=== PATIENT | female | born 1995 | race American Indian/Alaskan Native ===

== ENCOUNTER 2017-06-17 09:01 | Inpatient (IN) | payer OTHER, MEDICAID ==
[2017-06-17] MEDS ORDERED: BRETHINE IVP PRN (11:12)
[2017-06-17] MEDS ORDERED: ePHEDrine SULFATE IV PRN ×2 (11:12→18:00)
[2017-06-17] MEDS ORDERED: SUBLIMAZE IV PRN (11:12)
[2017-06-17] MEDS ORDERED: XYLOCAINE 2% INFILTRATI ONE (11:12)
[2017-06-17] MEDS ORDERED: BRETHINE SUB-Q PRN (11:12)
[2017-06-17] MEDS ORDERED: POLYCILLIN/NS 2 GM/100 ML 2 GM/100 ML BAG IV ONE (12:00)
[2017-06-17] MEDS ORDERED: PITOCin/NS 20 UNIT/1000ML DRIP 20 UNITS/1,000 ML BAG IV SCH ×2 (12:00→23:05)
[2017-06-17] MEDS ORDERED: LACTATED RINGERS 1,000 ML IV SCH (12:00)
[2017-06-17 12:28] LABS: Hematocrit 36.6 % (30.3-42.9); Mean Corpuscular HGB Conc 33 % (30-34); Mean Corpuscular Hemoglobin 31 pg (28-32); Mean Corpuscular Volume 93 fl (79-97); Platelet Count 214 K/mm3 (140-440); Red Blood Count 3.92 M/mm3 (3.65-5.03); Red Cell Distribution Width 14.1 % (13.2-15.2)
--- NOTE | 2017-06-17 13:27 | History and Physical Report ---
History of Present Illness Date of examination: 06/17/17 Date of admission: 06/17/17 09:02 History of present illness: 21 yo LMP EDC 06/23/17 at 39.1 weeks gestation, presented to triage at 6cm. Voiced contractions since office visit yesterday. Denies vaginal bleeding or LOF > Early entry into care @ 11 weeks. Experienced 1st trimester vaginal bleeding with resolution. Aslo positive for GC and CT with treatment and negative LACEY in third trimester. She is GBS positive. Past History Past Medical History: no pertinent history Past Surgical History: no surgical history Family/Genetic History: none Social history: single - Obstetrical History Expected Date of Delivery: 06/23/17 Actual Gestation: 39 Week(s) 1 Day(s) : 1 Medications and Allergies Allergies Allergy/AdvReac Type Severity Reaction Status Date / Time No Known Allergies Allergy Unverified 06/17/17 10:25 Active Meds: Active Medications Ephedrine Sulfate (Ephedrine Sulfate) 10 mg IV Q2M PRN PRN Reason: Hypotension Stop: 06/17/17 15:00 Fentanyl (Sublimaze) 100 mcg IV Q2H PRN PRN Reason: Labor Pain Ampicillin Sodium (Polycillin/Ns 1 Gm/50 Ml) 1 gm in 50 mls @ 100 mls/hr IV Q4HR HEATHER PRN Reason: Protocol Lactated Ringer's (Lactated Ringers) 1,000 mls @ 125 mls/hr IV DIRECT [facility] Last Admin: 06/17/17 11:47 Dose: 125 mls/hr Oxytocin/Sodium Chloride (Pitocin/Ns 20 Unit/1000ml Drip) 20 units in 1,000 mls @ 125 mls/hr IV DIRECT HEATHER Mineral Oil (Mineral Oil) 30 ml PO QHS PRN PRN Reason: Constipation Terbutaline Sulfate (Brethine) 0.25 mg SUB-Q ONCE PRN PRN Reason: Hyperstimulation/Hypertonicity Stop: 06/17/17 15:00 Terbutaline Sulfate (Brethine) 0.25 mg IVP ONCE PRN PRN Reason: Hyperstimulation/Hypertonicity Stop: 06/17/17 15:00 Review of Systems All systems: negative Genitourinary: normal appearance, contractions, no vaginal bleeding, no vaginal discharge, no genital sores - Vital Signs Vital signs: Vital Signs Temp Resp 98.8 F 16 06/17/17 09:45 06/17/17 09:45 Temp Pulse Resp BP Pulse Ox 98.1 F 96 H 18 140/55 98 06/17/17 12:08 06/17/17 13:26 06/17/17 12:08 06/17/17 12:25 06/17/17 13:26 - Physical Exam Lungs: Positive: Normal air movement Abdomen: Positive: normal appearance Vulva: both: normal Vagina: Positive: normal moisture - Obstetrical FHR: category 1 (prior to AROM), category 2 (varible decels after AROM-clear fluid) Uterine Contraction Monitor Mode: External Cervical Dilatation: 8 Cervical Effacement Percentage: 80 station: -1 Uterine Contraction Frequency (min): toco adjusted Uterine Contraction Pattern: Irregular Uterine Tone Measurement Phase: Resting Uterine Contraction Intensity: Strong/Firm Results Result Diagrams: 06/17/17 11:43 All other labs normal. Assessment and Plan A: IUP at 39.1 weeks gestation Transitional Labor +GBS P AROM-clear Expectant ita't
[2017-06-17] MEDS: POLYCILLIN/NS 1 GM/50 ML 1 GM/50 ML BAG IV SCH ×2 (15:09→20:29)
[2017-06-17] MEDS ORDERED: STADOL IV PRN (16:32)
[2017-06-17] MEDS ORDERED: PITOCin/NS 30 UNIT/500ML 30 UNITS/500 ML BAG IV SCH (17:00)
--- NOTE | 2017-06-17 17:40 | Event Note ---
Date: 06/17/17 Pt bolusing for epidural. FHTs Category II Tracing. Irregular contractions. Cervix: /-2. RN reports inadequate contractions previously. Begin pitocin augmentation. Pt bolusing for epidural.
[2017-06-17] MEDS ORDERED: NARCAN 2 MG/2 ML IV PRN (18:00)
[2017-06-17] MEDS ORDERED: fentaNYL-BUPIV 2 MCG/ML-0.125% 200 MCG/100 ML BAG EPIDURAL SCH (19:00)
--- NOTE | 2017-06-17 21:25 | Procedure Note ---
OB Delivery Note - Delivery Date of Delivery: 06/17/17 Surgeon: SANDOR FIGUEROA Estimated blood loss: 300cc - Vaginal Delivery presentation: vertex Delivery position: OA Intrapartum events: meconium, prolonged active phase, mult.variable deceleratio Delivery induction: none Delivery augmentation: rupture of membranes, pitocin Delivery monitor: external FHT, internal uterine Route of delivery: Delivery placenta: spontaneous Delivery cord: 3 umbilical vessels Episiotomy: none Delivery laceration: none Anesthesia: epidural Delivery comments: Pt progressed to complete/complete/+1 and pushed to deliver a viable female via under epidural anesthesia over intact perineum. Head delivered in MILAD position, quickly followed by shoulders and body. placed on maternal abdomen for bonding and bulb suctioned. Cord clamped and cut. Cord blood collected. handed to nurse in attendance. Placenta delivered spontaneously (3VC, intact). Vagina and perineum explored. No lacerations noted. EBL 300 mL. - Infant A at 1 minute: 8 at 5 minutes: 9 Infant Gender: Female (2987g (6lb 9oz) @ 21:11pm)
[2017-06-17] MEDS ORDERED: MINERAL OIL PO PRN (22:00)
[2017-06-17] MEDS ORDERED: ZOFRAN IV PRN (23:05)
[2017-06-17] MEDS ORDERED: DULCOLAX PR PRN (23:05)
[2017-06-17] MEDS ORDERED: PHENERGAN PO PRN (23:05)
[2017-06-17] MEDS ORDERED: MILK OF MAGNESIA PO PRN (23:05)
[2017-06-17] MEDS ORDERED: DERMOPLAST TP PRN (23:05)
[2017-06-17] MEDS ORDERED: LANSINOH TP PRN ×2 (23:05)
[2017-06-17] MEDS ORDERED: BENADRYL PO PRN (23:05)
[2017-06-17] MEDS ORDERED: PHENERGAN PR PRN (23:05)
[2017-06-17] MEDS ORDERED: NORCO 5/325 PO PRN (23:05)
[2017-06-17] MEDS ORDERED: SODIUM CHLORIDE FLUSH SYRINGE 10 ML IV PRN (23:05)
[2017-06-17] MEDS ORDERED: TUCKS PAD TP PRN (23:05)
[2017-06-17] MEDS ORDERED: TYLENOL PO PRN (23:05)
[2017-06-18] MEDS: MOTRIN PO SCH ×5 (00:58→23:32)
[2017-06-18] MEDS: FEOSOL PO SCH ×3 (00:58→23:32)
--- NOTE | 2017-06-18 08:40 | Progress Note ---
Assessment and Plan O: VSS AF PP H/H: PP pending A: Stable 12hr post P: Routine PP orders Subjective - Subjective Date of service: 06/18/17 Interval history: 21 yo LMP EDC 06/23/17 at 39.1 weeks gestation, presented to triage at 6cm. Voiced contractions since office visit yesterday. Denies vaginal bleeding or LOF > Early entry into care @ 11 weeks. Experienced 1st trimester vaginal bleeding with resolution. Aslo positive for GC and CT with treatment and negative LACEY in third trimester. She is GBS positive. Patient reports: appetite normal, voiding normally, pain well controlled, ambulating normally : doing well, nursing well Objective - Vital Signs Latest vital signs: Vital Signs Temp Pulse Resp BP BP Pulse Ox 06/18/17 05:57 18 06/18/17 04:30 98.6 F 69 16 114/74 06/18/17 01:58 18 06/18/17 01:30 98.6 F 69 16 101/76 06/18/17 00:58 18 06/17/17 22:45 97.7 F 06/17/17 22:35 69 144/66 06/17/17 22:20 68 132/63 06/17/17 22:05 80 131/60 06/17/17 21:51 93 H 127/72 06/17/17 21:35 91 H 117/63 06/17/17 21:27 90 116/62 06/17/17 21:16 121 H 100 06/17/17 21:11 148 H 92 06/17/17 21:06 135 H 100 06/17/17 21:05 112 H 99/58 06/17/17 21:01 123 H 99 06/17/17 21:00 106 H 92 06/17/17 20:56 89 99 06/17/17 20:51 84 98/54 100 06/17/17 20:46 92 H 100 06/17/17 20:41 86 93 06/17/17 20:37 97 H 95/52 06/17/17 20:36 78 100 06/17/17 20:31 98 H 100 06/17/17 20:26 73 100 06/17/17 20:21 73 100 06/17/17 20:20 107 H 118/81 06/17/17 20:16 103 H 100 06/17/17 20:11 73 100 06/17/17 20:06 90 100 06/17/17 20:05 104 H 115/74 06/17/17 20:01 85 100 06/17/17 19:56 66 100 06/17/17 19:51 65 99 06/17/17 19:50 63 114/57 06/17/17 19:46 69 100 06/17/17 19:45 76 80 L 06/17/17 19:40 69 100 06/17/17 19:35 73 128/73 99 06/17/17 19:30 97.2 F L 62 100 06/17/17 19:25 65 100 06/17/17 19:20 85 133/63 06/17/17 19:06 61 115/59 06/17/17 18:51 84 122/66 06/17/17 18:36 99 H 119/59 06/17/17 18:21 91 H 104/63 06/17/17 18:04 72 109/58 06/17/17 18:03 88 114/52 06/17/17 18:00 74 112/55 06/17/17 17:58 88 97/49 06/17/17 17:57 73 111/53 06/17/17 17:55 85 100/49 06/17/17 17:40 65 121/58 06/17/17 17:08 67 116/85 06/17/17 17:00 98.2 F 16 06/17/17 16:40 58 L 117/58 06/17/17 16:07 60 115/67 06/17/17 15:55 90 111/66 06/17/17 15:39 62 109/71 06/17/17 15:21 65 154/60 06/17/17 15:17 154/60 06/17/17 15:10 48 H 06/17/17 15:01 64 99 06/17/17 14:56 67 100 06/17/17 14:54 99 H 92 06/17/17 14:51 65 100 06/17/17 14:46 29 L 91 06/17/17 14:41 72 100 06/17/17 14:38 81 94 06/17/17 14:36 83 100 06/17/17 14:31 66 95 06/17/17 14:29 93 H 89 06/17/17 14:26 69 100 06/17/17 14:21 71 93 06/17/17 14:16 95 H 89 06/17/17 14:11 67 100 06/17/17 14:06 59 L 100 06/17/17 14:01 65 100 06/17/17 13:56 71 100 06/17/17 13:52 91 H 86 06/17/17 13:51 69 100 06/17/17 13:46 63 100 06/17/17 13:41 75 100 06/17/17 13:36 75 99 06/17/17 13:31 87 99 06/17/17 13:26 96 H 98 06/17/17 13:21 105 H 97 06/17/17 13:17 88 87 06/17/17 13:16 82 97 06/17/17 13:11 86 96 06/17/17 13:09 94 H 94 06/17/17 13:06 95 H 97 06/17/17 13:01 94 H 97 06/17/17 12:56 71 98 06/17/17 12:51 90 98 06/17/17 12:46 84 98 06/17/17 12:41 98 H 98 06/17/17 12:36 83 100 06/17/17 12:31 96 H 92 06/17/17 12:26 102 H 100 06/17/17 12:25 90 140/55 06/17/17 12:21 90 100 06/17/17 12:16 96 H 100 06/17/17 12:11 96 H 99 06/17/17 12:08 98.1 F 74 18 140/55 100 06/17/17 12:06 99 H 100 06/17/17 12:01 87 98 06/17/17 12:00 80 93 06/17/17 11:56 86 100 06/17/17 11:53 96 H 81 L 06/17/17 11:51 84 100 06/17/17 11:46 82 100 06/17/17 11:41 94 H 98 06/17/17 11:36 79 97 06/17/17 11:34 59 L 91 06/17/17 11:31 83 97 06/17/17 11:26 74 97 06/17/17 11:21 71 99 06/17/17 11:16 72 99 06/17/17 10:54 86 114/55 06/17/17 10:40 78 105/52 06/17/17 10:27 77 114/64 06/17/17 10:21 65 109/63 06/17/17 10:16 75 105/61 06/17/17 10:11 74 112/63 06/17/17 10:08 81 109/54 06/17/17 10:01 95 H 121/65 06/17/17 09:57 66 110/55 06/17/17 09:51 87 111/64 06/17/17 09:49 81 187/68 06/17/17 09:45 98.8 F 16 Intake and Output 06/17/17 06/18/17 06/18/17 22:59 06:59 14:59 Intake Total 85 500 Output Total 1400 Balance 85 -900 Intake: IV 85 PITOCin/NS 30 UNIT/500ML 35 30 units In 500 ml @ 4 mls/hr IV Q30MIN HEATHER Rx#: [id number] POLYCILLIN/NS 1 GM/50 ML 50 1 gm In 50 ml @ 100 mls/ hr IV Q4HR HEATHER Rx#: [id number] Oral 200 Intake, Free Water 300 Output: Urine 1400 Void 1400 Other: Total, Intake Amount 200 Total, Output Amount 800 # Voids Void 1 Estimated Blood Loss 300 - Exam Breasts: Present: deferred Lungs: Present: Normal air movement Abdomen: Present: normal appearance, soft. Absent: distention, tenderness Uterus: Present: normal, firm, fundal height below umbilicus. Absent: bogginess , tenderness Extremities: Present: normal
[2017-06-18 10:20] LABS: Hematocrit 31.3 % (30.3-42.9); Hemoglobin 10.4 gm/dl (10.1-14.3)
[2017-06-18] MEDS ORDERED: M-M-R II VACCINE SUB-Q ONE (21:30)
[2017-06-19] MEDS: MOTRIN PO SCH ×2 (05:30→12:45)
[2017-06-19] MEDS ORDERED: BOOSTRIX IM ONE (06:00)
--- NOTE | 2017-06-19 14:33 | Progress Note ---
Assessment and Plan A: PPD#2 s/p at term P: Discharge home with follow up in 4 weeks. Subjective - Subjective Date of service: 06/19/17 Principal diagnosis: s/p at term Interval history: No overnight events. Pt would like to go home. Patient reports: appetite normal, voiding normally, pain well controlled, ambulating normally, no dizzy ambulation Mercer: doing well Objective - Vital Signs Latest vital signs: Vital Signs Temp Pulse Resp BP 06/19/17 00:00 98.0 F 63 18 112/73 06/18/17 17:10 98.6 F 77 18 97/54 Intake and Output 06/18/17 06/19/17 06/19/17 22:59 06:59 14:59 Intake Total 240 Balance 240 Intake: Oral 240 Other: Total, Intake Amount 240 # Voids Void 1 - Exam Breasts: Present: deferred Cardiovascular: Present: Regular rate Lungs: Present: Clear to auscultation Abdomen: Present: soft Uterus: Present: fundal height below umbilicus Extremities: Present: normal
--- NOTE | 2017-06-19 14:35 | Discharge Summary ---
Providers - Providers Date of Admission: 06/17/17 09:02 Date of discharge: 06/19/17 Attending physician: RENA ANGEL 06/17/17 23:05 Consult to [employer] [CONS] Routine Reason For Exam: assistance with , SNS Primary care physician: RENA ANGEL Hospitalization Reason for admission: active labor Delivery: Procedure details: Please see delivery note. Episiotomy: none Laceration: none Other procedures: none complications: none Discharge diagnosis: IUP at term delivered baby: female Hospital course: Patient was admitted in active labor and went on to have a spontaneous vaginal delivery. Her course uncomplicated and she met discharge criteria on postoperative day #2. She'll follow up in the office with Dr. Rena Angel in 4 weeks. Condition at discharge: Stable Disposition: DC-01 TO HOME OR SELFCARE - Discharge Diagnoses (1) Term of female Status: Acute (2) Obesity (BMI 30.0-34.9) Status: Acute Plan - Discharge Medications Prescriptions: HYDROcodone/APAP 5-325 [[place] 5/325] 1 each PO Q6HR PRN #20 tablet PRN Reason: Pain Ibuprofen [Motrin] 800 mg PO Q8HR PRN #30 tablet PRN Reason: Pain - Provider Discharge Summary Activity: routine, no sex for 6 weeks, no heavy lifting 4 weeks, no strenuous exercise Diet: routine Instructions: routine Additional instructions: [] Smoking cessation referral if applicable(refer to patient education folder for contact #) [] Refer to [facility]'s [facility] Booklet Call your doctor immediately for: * Fever > 100.5 * Heavy vaginal bleeding ( >1 pad per hour) * Severe persistent headache * Shortness of breath * Reddened, hot, painful area to leg or breast * Drainage or odor from incision. * Keep incision clean and dry at all times and follow doctor's instructions regarding bathing/showering - Follow up plan Follow up: RENA ANGEL MD [Primary Care Provider] - 07/15/17 (please call for exam )
[2017-06-19 15:10] VITALS: BP 103/56
== END 2017-06-19 17:17 | disposition home or self-care (01) | DRG 775 ==
LOC: TRG 09:01 → LD 09:02 → TRG 09:03 → LD 09:03 → TRG 10:54 → OB 22:58
PROVIDERS: ADMIT Obstetrics & Gynecology; ATTEND Obstetrics & Gynecology
PROC: 10907ZC Drainage of Amniotic Fluid, Therapeutic from Products of Conception, Via Natural or Artificial Opening (ICD-10-PCS; principal; 2017-06-17)
PROC: 10E0XZZ Delivery of Products of Conception, External Approach (ICD-10-PCS; 2017-06-17)
PROC: 3E0R3BZ Introduction of Anesthetic Agent into Spinal Canal, Percutaneous Approach (ICD-10-PCS; 2017-06-17)
PROC: 00HU33Z Insertion of Infusion Device into Spinal Canal, Percutaneous Approach (ICD-10-PCS; 2017-06-17)
DX: O76 Abnormality in fetal heart rate and rhythm complicating labor and delivery (principal); O99.824 Streptococcus B carrier state complicating childbirth; O77.0 Labor and delivery complicated by meconium in amniotic fluid; O62.4 Hypertonic, incoordinate, and prolonged uterine contractions; O99.214 Obesity complicating childbirth; E66.9 Obesity, unspecified; Z68.30 Body mass index [BMI] 30.0-30.9, adult; Z3A.39 39 weeks gestation of pregnancy; Z37.0 Single live birth
CPT/HCPCS: 36415; 85014; 85018; 85027; 86850; 86900; 86901; 99211; G0463; J0290; J0595; J2590; J3010; J7120

== ENCOUNTER 2019-02-28 15:04 | Emergency (ER) | payer MEDICAID, OTHER ==
--- NOTE | 2019-02-28 15:26 | Emergency Department Report ---
Blank Doc - Documentation Documentation: 23-year-old female that presents with left pelvic pain with radiation to left back. Denies any vaginal bleeding. Stated is about 4 weeks . This initial assessment/diagnostic orders/clinical plan/treatment(s) is/are subject to change based on patient's health status, clinical progression and re- assessment by fellow clinical providers in the ED. Further treatment and workup at subsequent clinical providers discretion. Patient/guardians urged not to elope from the ED as their condition may be serious if not clinically assessed and managed. Initial orders include: 1- Patient sent to [facility] for further evaluation and treatment 2- labs 3- US OB
[2019-02-28 17:04] LABS: Basophils % (Auto) 0.4 % (0.0-1.8); Eosinophils # (Auto) 0.1 K/mm3 (0.0-0.4); Eosinophils % (Auto) 1.9 % (0.0-4.3); Hematocrit 37.6 % (30.3-42.9); Hemoglobin 12.4 gm/dl (10.1-14.3); Lymphocytes # (Auto) 1.7 K/mm3 (1.2-5.4); Lymphocytes % (Auto) 28.7 % (13.4-35.0); Mean Corpuscular HGB Conc 33 % (30-34); Mean Corpuscular Volume 95 fl (79-97); Monocytes # (Auto) 0.5 K/mm3 (0.0-0.8); Monocytes % (Auto) 8.5 % (0.0-7.3); Platelet Count 190 K/mm3 (140-440); Red Blood Count 3.96 M/mm3 (3.65-5.03); Red Cell Distribution Width 13.7 % (13.2-15.2)
--- NOTE | 2019-02-28 18:16 | Ultrasound Report ---
ULTRASOUND OBSTETRIC INDICATION / CLINICAL INFORMATION: pelvic pain. Vaginal bleeding. Clinical Gestational Age (GA): 4 weeks 0 days TECHNIQUE: Transabdominal and Transvaginal. COMPARISON: None available. FINDINGS: GESTATIONAL SAC: Well-defined oval shape and intrauterine in location. YOLK SAC: No significant abnormality. EMBRYO/FETUS: No significant abnormality. - [place]-Rump Length = 0.87 cm = 6 weeks, 6 day(s). - Heart Rate, beats per minute (if present) = 144 ADNEXA: Small 2.8 cm right ovarian cyst. FREE FLUID: None. ADDITIONAL FINDINGS: Small, crescentic hypoechoic area adjacent to the gestational sac measuring 0.5 x 0.2 x 0.6 cm likely representing small subchorionic bleed. IMPRESSION: 1. Single, living intrauterine with estimated sonographic age of 6 weeks, 6 day(s). 2. Small subchorionic bleed. Signer Name: James Sullivan MD Signed: 02/28/2019 6:12 PM Workstation Name: [id number]
--- NOTE | 2019-02-28 18:16 | Ultrasound Report ---
ULTRASOUND OBSTETRIC INDICATION / CLINICAL INFORMATION: pelvic pain. Vaginal bleeding. Clinical Gestational Age (GA): 4 weeks 0 days TECHNIQUE: Transabdominal and Transvaginal. COMPARISON: None available. FINDINGS: GESTATIONAL SAC: Well-defined oval shape and intrauterine in location. YOLK SAC: No significant abnormality. EMBRYO/FETUS: No significant abnormality. - [place]-Rump Length = 0.87 cm = 6 weeks, 6 day(s). - Heart Rate, beats per minute (if present) = 144 ADNEXA: Small 2.8 cm right ovarian cyst. FREE FLUID: None. ADDITIONAL FINDINGS: Small, crescentic hypoechoic area adjacent to the gestational sac measuring 0.5 x 0.2 x 0.6 cm likely representing small subchorionic bleed. IMPRESSION: 1. Single, living intrauterine with estimated sonographic age of 6 weeks, 6 day(s). 2. Small subchorionic bleed. Signer Name: James Sullivan MD Signed: 02/28/2019 6:12 PM Workstation Name: [id number]
[2019-02-28 18:19] LABS: Bacteria,Urine 2+ /HPF (Negative); Bilirubin,Urine NEG (Negative); Blood,Urine LG (Negative); Color,Urine Red (Yellow); Mucus,Urine FEW /HPF; Urobilinogen,Urine < 2.0 mg/dL (<2.0)
--- NOTE | 2019-02-28 19:53 | Emergency Department Report ---
ED HPI - General Chief complaint: Vaginal Bleeding Stated complaint: /BLEEDING Time Seen by Provider: 02/28/19 15:25 Source: patient Mode of arrival: Ambulatory Limitations: No Limitations - History of Present Illness Initial comments: Patient is a 23-year-old female presents emergency room with complaints of an episode of vaginal bleeding that occurred today. she denies any bleeding currently. She had some pelvic cramping has since resolved. states that she took a urine test and it was positive but she is not sure how far along she is she has not seen an [facility]. She denies any nausea, vomiting, fever, urinary symptoms, vaginal discharge. She denies any past medical history or allergies medications. /P:1/A:1 - Related Data Home Medications Medication Instructions Recorded Confirmed Last Taken Pnv 29-1 Tablet 1 tab PO DAILY 06/19/17 06/19/17 2 Days Ago ~06/17/17 Previous Rx's Medication Instructions Recorded Last Taken Type HYDROcodone/APAP 5-325 [[place] 1 each PO Q6HR PRN #20 tablet 06/18/17 Unknown Rx 5/325] Ibuprofen [Motrin] 800 mg PO Q8HR PRN #30 tablet 06/18/17 Unknown Rx cephALEXin [Keflex] 500 mg PO BID 7 Days #14 cap 02/28/19 Unknown Rx Allergies Allergy/AdvReac Type Severity Reaction Status Date / Time No Known Allergies Allergy Unverified 06/17/17 10:25 ED Review of Systems ROS: Stated complaint: /BLEEDING Other details as noted in HPI Comment: All other systems reviewed and negative ED Past Medical Hx - Past Medical History Previous Medical History?: No Hx Hypertension: No Hx Congestive Heart Failure: No Hx Diabetes: No Hx Deep Vein Thrombosis: No Hx Renal Disease: No Hx Sickle Cell Disease: No Hx Seizures: No Hx Asthma: No Hx COPD: No Hx HIV: No - Surgical History Past Surgical History?: No - Social History Smoking Status: Never Smoker Substance Use Type: Alcohol - Medications Home Medications: Home Medications Medication Instructions Recorded Confirmed Last Taken Type HYDROcodone/APAP 5-325 [[place] 1 each PO Q6HR PRN #20 tablet 06/18/17 Unknown Rx 5/325] Ibuprofen [Motrin] 800 mg PO Q8HR PRN #30 tablet 06/18/17 Unknown Rx Pnv 29-1 Tablet 1 tab PO DAILY 06/19/17 06/19/17 2 Days Ago History ~06/17/17 cephALEXin [Keflex] 500 mg PO BID 7 Days #14 cap 02/28/19 Unknown Rx ED Physical Exam - General Limitations: No Limitations General appearance: alert, in no apparent distress - Head Head exam: Present: atraumatic, normocephalic - Eye Eye exam: Present: normal appearance - ENT ENT exam: Present: mucous membranes moist - Respiratory Respiratory exam: Present: normal lung sounds bilaterally. Absent: respiratory distress, wheezes, rales, rhonchi, stridor, chest wall tenderness, accessory muscle use, decreased breath sounds, prolonged expiratory - Cardiovascular Cardiovascular Exam: Present: regular rate, normal rhythm, normal heart sounds. Absent: systolic murmur, diastolic murmur, rubs, gallop - GI/Abdominal GI/Abdominal exam: Present: soft, normal bowel sounds. Absent: distended, tenderness, guarding, rebound, rigid - Neurological Exam Neurological exam: Present: alert, oriented X3 - Psychiatric Psychiatric exam: Present: normal affect, normal mood - Skin Skin exam: Present: warm, dry, intact ED Course Vital Signs 02/28/19 02/28/19 15:08 20:06 Temperature 98.2 F Pulse Rate 87 80 Respiratory 17 Rate Blood Pressure 113/64 Blood Pressure 120/78 [Right] O2 Sat by Pulse 100 Oximetry ED Medical Decision Making - Lab Data Result diagrams: 02/28/19 15:59 Lab Results 02/28/19 02/28/19 02/28/19 Range/Units 15:59 15:59 15:59 WBC 6.1 (4.5-11.0) K/mm3 RBC 3.96 (3.65-5.03) M/mm3 Hgb 12.4 (10.1-14.3) gm/dl Hct 37.6 (30.3-42.9) % MCV 95 (79-97) fl MCH 31 (28-32) pg MCHC 33 (30-34) % RDW 13.7 (13.2-15.2) % Plt Count 190 (140-440) K/mm3 Lymph % (Auto) 28.7 (13.4-35.0) % [place] % (Auto) 8.5 H (0.0-7.3) % Eos % (Auto) 1.9 (0.0-4.3) % Baso % (Auto) 0.4 (0.0-1.8) % Lymph # 1.7 (1.2-5.4) K/mm3 [place] # 0.5 (0.0-0.8) K/mm3 Eos # 0.1 (0.0-0.4) K/mm3 Baso # 0.0 (0.0-0.1) K/mm3 Seg Neutrophils % 60.5 (40.0-70.0) % Seg Neutrophils # 3.7 (1.8-7.7) K/mm3 HCG, Quant 14624 H (0-4) mIU/mL Urine Color (Yellow) Urine Turbidity (Clear) Urine pH (5.0-7.0) Ur Specific [place] (1.003-1.030) Urine Protein (Negative) mg/dL Urine Glucose (UA) (Negative) mg/dL Urine Ketones (Negative) mg/dL Urine Blood (Negative) Urine Nitrite (Negative) Urine Bilirubin (Negative) Urine Urobilinogen (<2.0) mg/dL Ur Leukocyte Esterase (Negative) Urine WBC (Auto) (0.0-6.0) /HPF Urine RBC (Auto) (0.0-6.0) /HPF U Epithel Cells (Auto) (0-13.0) /HPF Urine Bacteria (Auto) (Negative) /HPF Urine Mucus /HPF Blood Type O POSITIVE 02/28/19 Range/Units Unknown WBC (4.5-11.0) K/mm3 RBC (3.65-5.03) M/mm3 Hgb (10.1-14.3) gm/dl Hct (30.3-42.9) % MCV (79-97) fl MCH (28-32) pg MCHC (30-34) % RDW (13.2-15.2) % Plt Count (140-440) K/mm3 Lymph % (Auto) (13.4-35.0) % [place] % (Auto) (0.0-7.3) % Eos % (Auto) (0.0-4.3) % Baso % (Auto) (0.0-1.8) % Lymph # (1.2-5.4) K/mm3 [place] # (0.0-0.8) K/mm3 Eos # (0.0-0.4) K/mm3 Baso # (0.0-0.1) K/mm3 Seg Neutrophils % (40.0-70.0) % Seg Neutrophils # (1.8-7.7) K/mm3 HCG, Quant (0-4) mIU/mL Urine Color Red (Yellow) Urine Turbidity Cloudy (Clear) Urine pH 7.0 (5.0-7.0) Ur Specific [place] 1.020 (1.003-1.030) Urine Protein 100 mg/dl (Negative) mg/dL Urine Glucose (UA) Neg (Negative) mg/dL Urine Ketones Neg (Negative) mg/dL Urine Blood Lg (Negative) Urine Nitrite Neg (Negative) Urine Bilirubin Neg (Negative) Urine Urobilinogen < 2.0 (<2.0) mg/dL Ur Leukocyte Esterase Tr (Negative) Urine WBC (Auto) 19.0 H (0.0-6.0) /HPF Urine RBC (Auto) 42.0 (0.0-6.0) /HPF U Epithel Cells (Auto) 44.0 H (0-13.0) /HPF Urine Bacteria (Auto) 2+ (Negative) /HPF Urine Mucus Few /HPF Blood Type - Radiology Data Radiology results: report reviewed ULTRASOUND OBSTETRIC INDICATION / CLINICAL INFORMATION: pelvic pain. Vaginal bleeding. Clinical Gestational Age (GA): 4 weeks 0 days TECHNIQUE: Transabdominal and Transvaginal. COMPARISON: None available. FINDINGS: GESTATIONAL SAC: Well-defined oval shape and intrauterine in location. YOLK SAC: No significant abnormality. EMBRYO/FETUS: No significant abnormality. - [place]ump Length = 0.87 cm = 6 weeks, 6 day(s). - Heart Rate, beats per minute (if present) = 144 ADNEXA: Small 2.8 cm right ovarian cyst. FREE FLUID: None. ADDITIONAL FINDINGS: Small, crescentic hypoechoic area adjacent to the gestational sac measuring 0.5 x 0.2 x 0.6 cm likely representing small subchorionic bleed. IMPRESSION: 1. Single, living intrauterine with estimated sonographic age of 6 weeks, 6 day(s). 2. Small subchorionic bleed. Signer Name: James Sullivan MD Signed: 02/28/2019 6:12 PM Workstation Name: [id number] Transcribed By: DT Dictated By: Perez Sullivan MD Electronically Authenticated By: Perez Slulivan MD Signed Date/Time: 02/28/191811 - Medical Decision Making Patient is a 23-year-old female presents emergency room with complaints of an episode of vaginal bleeding that occurred today. she denies any bleeding currently. She had some pelvic cramping has since resolved. states that she took a urine test and it was positive but she is not sure how far along she is she has not seen an [facility]. She denies any nausea, vomiting, fever, urinary symptoms, vaginal discharge. She denies any past medical history or allergies medications. /P:1/A:1. vitals are normal. [place] [address]. UA shows WBCs and trace leukocyte esterase. pt is Rh positive. US OB: 1. Single, living intrauterine with estimated sonographic age of 6 weeks, 6 day(s). 2. Small subchorionic bleed. Discussed results with poonam smyth and answered all questions. pt given ultrasound report to take to an [facility]. Patient given prescription for Keflex for UTI. Advised patient please take medication as prescribed. increase water intake and began to take her vitamin [id number]. Will need to have a repeat hCG Quant in 2 days. Today [place] Quant was [id number]. Need to have close follow-up with an [facility] regarding the small subchorionic hemorrhage. please follow up with an [facility] in the next 2-3 days. return to the emergency room for any new or worsening symptoms. - Differential Diagnosis IUP, ectopic, subchorionic hemorrhage, hemorrhagic cyst, UTI, placenta prev Critical care attestation.: If time is entered above; I have spent that time in minutes in the direct care of this critically ill patient, excluding procedure time. ED Disposition Clinical Impression: Threatened miscarriage Subchorionic hemorrhage Qualifiers: Fetus number: single or unspecified fetus Trimester: first trimester Qualified Code(s): O41.8X10 - Other specified disorders of amniotic fluid and membranes, first trimester, not applicable or unspecified UTI (urinary tract infection) Qualifiers: Urinary tract infection type: acute cystitis Hematuria presence: with hematuria Qualified Code(s): N30.01 - Acute cystitis with hematuria Disposition: TO HOME OR SELFCARE Is pt being admited?: No Does the pt Need Aspirin: No Condition: Stable Instructions: Threatened Miscarriage (ED), Urinary Tract Infection in Women (ED) Additional Instructions: please take medication as prescribed. increase water intake and began to take her vitamin [id number]. Will need to have a repeat hCG Quant in 2 days. Today [place] Quant was [id number]. Need to have close follow-up with an [facility] regarding the small subchorionic hemorrhage. may take tylenol for any discomfort. please follow up with an [facility] in the next 2-3 days. return to the emergency room for any new or worsening symptoms. Prescriptions: cephALEXin [Keflex] 500 mg PO BID 7 Days #14 cap [facility] [Provider Group] - 2-3 Days [facility] [Provider Group] - 2-3 Days [facility] [Provider Group] - 2-3 Days Time of Disposition: 20:00 Print Language: TAJIK
[2019-02-28 20:06] VITALS: BP 120/78
== END 2019-02-28 20:09 | disposition home or self-care (01) ==
LOC: ED 15:04
DX: O20.0 Threatened abortion (principal); O23.41 Unspecified infection of urinary tract in pregnancy, first trimester; Z79.899 Other long term (current) drug therapy; Z3A.01 Less than 8 weeks gestation of pregnancy
CPT/HCPCS: 36415; 76801; 76817; 81001; 84702; 85025; 86900; 86901; 87086

== ENCOUNTER 2019-10-08 11:28 | Inpatient (IN) | payer MEDICAID ==
[2019-10-08] MEDS ORDERED: OXYTOCIN 10 UNIT/1 ML INJ ONE (11:31)
[2019-10-08] MEDS ORDERED: TERBUTALINE 1 MG/1 ML INJ SUB-Q PRN (11:36)
[2019-10-08] MEDS ORDERED: LIDOCAINE (2%) 20 MG/1 ML VIAL 20 ML MDV INFILTRATI ONE (11:36)
--- NOTE | 2019-10-08 11:40 | History and Physical Report ---
History of Present Illness Date of examination: 10/08/19 Date of admission: 10/08/19 11:28 Chief complaint: Pt. states "Baby is coming out." History of present illness: 24 year old female presents to [facility] with urge to push and baby at +2 station. Patient received care from [facility]; no records available. Was able to access labs and records on computer. LMP 12/31/2018. EDC 10/07/2019. significant for the following: LSIL, chlamydia (treated), subchorionic hemorrhage in first trimester, anemia (supplemented with iron). labs are as follows: O+, antibody screen negative, rubella immune, hepatitis B surface antigen negative, HIV negative, RPR nonreactive, hemoglobin elecctrophoresis AA, gonorrhea negative, chlamydia positive/negative/positive, trichomonas negative, varicella immune, GBS negative, 1 hour sugar test 70. Past History Past Medical History: no pertinent history Past Surgical History: no surgical history [facility] History: abnormal PAP smear Family/Genetic History: diabetes Social history: single, full code. denies: smoking, alcohol abuse, prescription drug abuse, IV drug use - Obstetrical History Expected Date of Delivery: 10/07/19 Actual Gestation: 40 Week(s) 1 Day(s) : 3 Para: 1 Hx # Term Pregnancies: 1 Number of Pregnancies: 0 Spontaneous Abortions: 1 Induced : 0 Number of Living Children: 1 Medications and Allergies Allergies Allergy/AdvReac Type Severity Reaction Status Date / Time No Known Allergies Allergy Unverified 06/17/17 10:25 Home Medications Medication Instructions Recorded Confirmed Last Taken Type HYDROcodone/APAP 5-325 [[place] 1 each PO Q6HR PRN #20 tablet 06/18/17 Unknown Rx 5/325] Ibuprofen [Motrin] 800 mg PO Q8HR PRN #30 tablet 06/18/17 Unknown Rx Pnv 29-1 Tablet 1 tab PO DAILY 06/19/17 06/19/17 2 Days Ago History ~06/17/17 cephALEXin [Keflex] 500 mg PO BID 7 Days #14 cap 02/28/19 Unknown Rx Active Meds: Active Medications Oxytocin/Sodium Chloride (Pitocin/Ns 20 Unit/1000ml Drip) 20 units in 1,000 mls @ 125 mls/hr IV DIRECT HEATHER Lactated Ringer's (Lactated Ringers) 1,000 mls @ 125 mls/hr IV DIRECT HEATHER Lidocaine (Xylocaine 2%) 20 ml INFILTRATI ONCE ONE Stop: 10/08/19 11:37 Terbutaline Sulfate (Brethine) 0.25 mg SUB-Q ONCE PRN PRN Reason: Hyperstimulation/Hypertonicity Review of Systems All systems: negative (contractions, need to push) - Physical Exam Abdomen: Positive: normal appearance, soft. Negative: distention, tenderness, guarding, rigidity Genitourinary (Female): Positive: normal external genitalia, normal perenium. Negative: perineal/vulvar lesions Vagina: Positive: normal moisture Uterus: Positive: enlarged. Negative: tender Anus/Rectum: Positive: normal perianal skin - Obstetrical Cervical Dilatation: 10 Cervical Effacement Percentage: 100 station: +2 Results Result Diagrams: 10/08/19 12:11 All other labs normal. Assessment and Plan A: at 40 weeks, 1 day gestation. Active advanced labor. P: Patient had upon presentation to L&D. See orders.
[2019-10-08] MEDS ORDERED: WITCH HAZEL/ GLYCERIN PAD TP PRN (11:42)
[2019-10-08] MEDS ORDERED: LANOLIN/ZINC/DIMETHICONE (LANSINOH) 7 GM TP PRN (11:42)
[2019-10-08] MEDS ORDERED: MAGNESIUM HYDROXIDE (MOM) ORAL LIQD UDC PO PRN (11:42)
[2019-10-08] MEDS ORDERED: LACTATED RINGERS 1,000 ML IV SCH (12:00)
[2019-10-08] MEDS ORDERED: OXYTOCIN 20 UNIT/1000ML DRIP 20 UNITS/1,000 ML BAG IV SCH (12:00)
[2019-10-08] MEDS ORDERED: OXYTOCIN 10 UNIT/1 ML INJ IM ONE (12:00)
[2019-10-08] MEDS: HYDROcodone/ACETAMINOPHEN 5-325 MG TAB PO PRN (12:11)
--- NOTE | 2019-10-08 12:22 | Procedure Note ---
OB Delivery Note - Delivery Date of Delivery: 10/08/19 Surgeon: DOMINGO BA Estimated blood loss: other (150 cc) - Vaginal Delivery presentation: vertex Delivery position: OA Intrapartum events: precipitous labor- <3hr Delivery induction: none Delivery monitor: none Route of delivery: Delivery placenta: spontaneous Delivery cord: 3 umbilical vessels Episiotomy: none Delivery laceration: none Anesthesia: none Delivery comments: Precipitous delivery; pt. arrived in parking lot fully dilated with urge to push. Spontaneous vaginal delivery at of liveborn female infant weighing 6 lb. 5 oz. over intact perineum with apgars of . Baby placed skin to skin with mom immediately after delivery. Spontaneous cry and respirations. Baby dried and suctioned with bulb syringe. 3 vessel cord double clamped and cut. Spontaneous delivery of intact placenta and membranes. EBL 150 cc. Pitocin 10 units IM after delivery of placenta. Fundus firm and midline. Vaginal sweep negative. No lacerations noted. Mother and baby stable.
[2019-10-08 12:42] LABS: Hematocrit 36.2 % (30.3-42.9); Mean Corpuscular HGB Conc 33 % (30-34); Mean Corpuscular Volume 96 fl (79-97); Platelet Count 164 K/mm3 (140-440); Red Blood Count 3.79 M/mm3 (3.65-5.03)
[2019-10-08] MEDS ORDERED: AZITHROMYCIN 250 MG TAB PO ONE (15:07)
[2019-10-08 17:19] LABS: Amphetamine Screen,Urine PRESUMPTIVE NEGATIVE; Benzodiazepines Screen,Urine PRESUMPTIVE NEGATIVE; Cannabinoid Screen,Urine PRESUMPTIVE NEGATIVE; Cocaine Screen,Urine PRESUMPTIVE NEGATIVE; Methadone Screen,Urine PRESUMPTIVE NEGATIVE; Opiate Screen,Urine PRESUMPTIVE NEGATIVE
[2019-10-08] MEDS: IBUPROFEN 600 MG TAB PO SCH (19:46)
[2019-10-08] MEDS: FERROUS SULFATE 325 MG TAB PO SCH (23:58)
[2019-10-08] MEDS: DOCUSATE SODIUM 100 MG CAP PO SCH (23:59)
[2019-10-09 00:28] LABS: Hematocrit 30.5 % (30.3-42.9); Hemoglobin 10.6 gm/dl (10.1-14.3)
[2019-10-09] MEDS: IBUPROFEN 600 MG TAB PO SCH ×4 (03:45→18:35)
[2019-10-09] MEDS: HYDROcodone/ACETAMINOPHEN 5-325 MG TAB PO PRN (03:46)
[2019-10-09] MEDS: FERROUS SULFATE 325 MG TAB PO SCH ×2 (09:41→22:05)
[2019-10-09] MEDS: DOCUSATE SODIUM 100 MG CAP PO SCH ×2 (09:41→22:04)
--- NOTE | 2019-10-09 10:13 | Progress Note ---
Assessment and Plan A: day 1 S/P . Amemia. P: Supplement with iron. Anticipate discharge tomorrow. Subjective - Subjective Date of service: 10/09/19 Principal diagnosis: day 1 S/P Interval history: day 1 S/P . Doing well. No complaints. Patient reports: appetite normal, voiding normally, pain well controlled, flatus, ambulating normally, no dizzy ambulation, no nauseated : doing well Objective - Vital Signs Latest vital signs: Vital Signs Temp Pulse Resp BP BP Pulse Ox 10/09/19 07:25 97.5 F L 90 18 98/54 99 10/08/19 23:11 98.0 F 104 H 18 107/67 97 10/08/19 16:14 98.0 F 10/08/19 14:19 98.0 F 104 H 18 105/66 98 10/08/19 13:00 98.0 F 10/08/19 11:42 98.5 F 112/71 Intake and Output 10/08/19 10/09/19 10/09/19 23:59 07:59 15:59 Intake Total 120 600 Output Total 400 Balance -280 600 Intake: Oral 120 120 Intake, Free Water 480 Output: Urine 400 Void 400 Other: Total, Intake Amount 120 120 Total, Output Amount 400 # Voids Void 1 Estimated Blood Loss 150 - Exam Cardiovascular: Present: Regular rate, Normal S1, Normal S2. Absent: No murmurs Lungs: Present: Clear to auscultation Abdomen: Present: normal appearance, soft, normal bowel sounds. Absent: distention, tenderness, guarding, rigidity Uterus: Present: normal, firm, fundal height below umbilicus. Absent: bogginess, tenderness Extremities: Present: normal. Absent: tenderness, edema - Labs Labs: Abnormal lab results 10/08/19 Range/Units 12:11 WBC 12.6 H (4.5-11.0) K/mm3 RDW 13.0 L (13.2-15.2) %
--- NOTE | 2019-10-10 07:22 | Progress Note ---
Assessment and Plan A: day 2 S/P . Anemia. P: Discharge patient home today. Discussed with patient discharge instructions and warning signs. Advised pt. to continue taking vitamin and iron supplements at home. Advised pt. to avoid intercourse, lifting, heavy housework. Advised patient to follow up at [facility] in 4 weeks and prn. Patient voiced understanding of all instructions. Subjective - Subjective Date of service: 10/10/19 Principal diagnosis: day 2 S/P Interval history: day 2 S/P . Doing well. No complaints. Patient desires discharge today. Patient reports: appetite normal, voiding normally, pain well controlled, flatus, ambulating normally, no dizzy ambulation, no nauseated : doing well Objective - Vital Signs Latest vital signs: Vital Signs Temp Pulse Resp BP Pulse Ox 10/10/19 00:00 98.3 F 83 20 102/58 99 10/09/19 17:15 84 10/09/19 15:18 98.0 F 107 H 18 101/62 98 10/09/19 11:01 98.2 F 85 18 98/60 100 10/09/19 07:25 97.5 F L 90 18 98/54 99 Intake and Output 10/09/19 10/09/19 10/10/19 15:59 23:59 07:59 Intake Total 120 Output Total 600 Balance -480 Intake: Oral 120 Output: Urine 600 Void 600 Other: Total, Intake Amount 120 Total, Output Amount 600 # Voids Void 1 - Exam Cardiovascular: Present: Regular rate, Normal S1, Normal S2, No murmurs Lungs: Present: Clear to auscultation Abdomen: Present: normal appearance, soft, normal bowel sounds. Absent: distention, tenderness, guarding, rigidity Uterus: Present: normal, firm, fundal height below umbilicus. Absent: bogginess, tenderness Extremities: Present: normal. Absent: tenderness, edema
--- NOTE | 2019-10-10 07:25 | Discharge Summary ---
Providers - Providers Date of Admission: 10/08/19 11:28 Date of discharge: 10/10/19 Attending physician: KARINE BAJWA MD Primary care physician: KARINE BAJWA MD Hospitalization Reason for admission: active labor Delivery: Episiotomy: none Laceration: none Other procedures: none complications: none Discharge diagnosis: IUP at term delivered baby: female Pertinent studies: Labs Hospital course: Normal hospital course Condition at discharge: Good Disposition: DC-01 TO HOME OR SELFCARE - Discharge Diagnoses (1) Term delivered Status: Acute (2) Anemia Status: Acute Plan - Provider Discharge Summary Activity: routine, no sex for 6 weeks, no heavy lifting 4 weeks, no strenuous exercise Diet: routine Instructions: routine Additional instructions: Continue taking your vitamins and iron supplements at home. Call your doctor immediately for: * Fever > 100.5 * Heavy vaginal bleeding ( >1 pad per hour) * Severe persistent headache * Shortness of breath * Reddened, hot, painful area to leg or breast - Follow up plan Follow up: KARINE BAJWA MD [Primary Care Provider] - 11/07/19
[2019-10-10] MEDS: FERROUS SULFATE 325 MG TAB PO SCH (09:32)
[2019-10-10] MEDS: DOCUSATE SODIUM 100 MG CAP PO SCH (09:32)
[2019-10-10 15:47] VITALS: BP 112/67
== END 2019-10-10 15:15 | disposition home or self-care (01) | DRG 775 ==
LOC: LD 11:28 → OB 14:53
PROVIDERS: ADMIT Obstetrics & Gynecology; ATTEND Obstetrics & Gynecology
PROC: 10E0XZZ Delivery of Products of Conception, External Approach (ICD-10-PCS; principal; 2019-10-08)
DX: O62.3 Precipitate labor (principal); O90.81 Anemia of the puerperium; D64.9 Anemia, unspecified; Z3A.40 40 weeks gestation of pregnancy; Z37.0 Single live birth; Z83.3 Family history of diabetes mellitus
CPT/HCPCS: 36415; 80307; 85014; 85018; 85027; 86592; 86850; 86900; 86901; G0378; J2590